=== PATIENT | male | born 1985 | race Caucasian/White ===

== ENCOUNTER 2017-05-11 21:21 | Emergency (ER) | payer OTHER ==
[~2017-05-11] VITALS: Ht 170.2 cm; Wt 66.7 kg
[2017-05-11 22:12] VITALS: Ht 170.2 cm; Wt 66.7 kg
[2017-05-11 23:54] VITALS: BP 110/76
== END 2017-05-11 23:43 | disposition home or self-care (01) ==
LOC: ED 21:21
DX: H10.9 Unspecified conjunctivitis (principal)

== ENCOUNTER 2019-10-22 20:13 | Emergency (ER) | payer OTHER ==
[~2019-10-22] VITALS: Ht 167.6 cm; Wt 73.9 kg
[2019-10-22 20:24] VITALS: BP 128/78; Ht 167.6 cm; Wt 73.9 kg
== END 2019-10-22 21:43 | disposition home or self-care (01) ==
LOC: ED 20:13
DX: S20.211A Contusion of right front wall of thorax, initial encounter (principal); X58.XXXA Exposure to other specified factors, initial encounter; Y93.89 Activity, other specified; Y92.89 Other specified places as the place of occurrence of the external cause; Y99.8 Other external cause status